=== PATIENT | male | born 2000 | race Caucasian/White ===

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

== ENCOUNTER → 2021-02-19 | Outpatient (CLI) | payer OTHER | END | disposition home or self-care (01) | LOC: ORTHO 02-18 05:31 | PROVIDERS: ATTEND Orthopaedic Surgery | DX: M25.561 Pain in right knee (principal); M25.562 Pain in left knee ==

== ENCOUNTER 2021-02-22 22:20 | Emergency (ER) | payer OTHER ==
[~2021-02-22] VITALS: Ht 175.2 cm; Wt 118.8 kg
== END 2021-02-23 01:40 | disposition home or self-care (01) ==
LOC: ED 22:20
DX: M25.512 Pain in left shoulder (principal); J45.909 Unspecified asthma, uncomplicated; Z88.8 Allergy status to other drugs, medicaments and biological substances; Z79.899 Other long term (current) drug therapy; Z79.2 Long term (current) use of antibiotics; X50.1XXA Overexertion from prolonged static or awkward postures, initial encounter; Y93.89 Activity, other specified; Y92.89 Other specified places as the place of occurrence of the external cause; Y99.8 Other external cause status

== ENCOUNTER 2021-08-23 14:49 | Emergency (ER) | payer OTHER ==
[~2021-08-23] VITALS: Ht 177.8 cm; Wt 95.3 kg
== END 2021-08-23 17:30 | disposition left against medical advice (07) ==
LOC: ED 14:49
DX: Z53.21 Procedure and treatment not carried out due to patient leaving prior to being seen by health care provider (principal)

== ENCOUNTER 2021-09-19 14:01 | Emergency (ER) | payer OTHER ==
[2021-09-19] MEDS ORDERED: ANTIBIOTIC28.4 GM T (14:38)
== END 2021-09-19 14:50 | disposition home or self-care (01) ==
LOC: ED 14:01
DX: T24.021A Burn of unspecified degree of right knee, initial encounter (principal); Z88.8 Allergy status to other drugs, medicaments and biological substances; Z79.899 Other long term (current) drug therapy; Z90.89 Acquired absence of other organs; X19.XXXA Contact with other heat and hot substances, initial encounter; Y93.89 Activity, other specified; Y92.89 Other specified places as the place of occurrence of the external cause; Y99.8 Other external cause status

== ENCOUNTER 2021-12-21 21:21 | Emergency (ER) | payer OTHER ==
[~2021-12-21] VITALS: Ht 172.7 cm; Wt 111.1 kg
[~2021-12-21 21:21] MED LIST changes: +ANTIBIOTIC28.4 GM T
== END 2021-12-21 22:04 | disposition home or self-care (01) ==
LOC: ED 21:21
DX: M79.604 Pain in right leg (principal); Z88.8 Allergy status to other drugs, medicaments and biological substances; Z79.899 Other long term (current) drug therapy; Z90.89 Acquired absence of other organs

== ENCOUNTER → 2021-12-22 | Outpatient (CLI) | payer OTHER | END | disposition home or self-care (01) | LOC: US 07:43 | PROVIDERS: ATTEND Physician Assistant | DX: M79.604 Pain in right leg (principal) ==

== ENCOUNTER 2022-01-29 09:38 | Emergency (ER) | payer OTHER ==
[~2022-01-29] VITALS: Ht 175.2 cm; Wt 111.6 kg
[2022-01-29 10:12] LABS: BASO % 0.4 % (0.0-1.0); EOS # 0.5 10*3/uL (0.0-0.4); EOS % 5.9 % (1.0-4.0); HEMATOCRIT 48.3 % (42.0-52.0); LYMPH # 2.5 10*3/uL (1.3-4.4); MEAN CELL VOLUME 86.3 fl (80.0-94.0); MEAN CORPUSCULAR HGB 28.9 pg (27.0-31.0); MEAN CORPUSCULAR HGB CONC 33.5 g/dl (33.0-37.0); MEAN PLATELET VOLUME 10.4 fl (9.6-12.3); MONO # 0.7 10*3/uL (0.1-1.0); NEUT # 4.6 10*3/uL (2.3-7.9); NEUT % 55.5 % (47.0-73.0); PLATELET COUNT AUTOMATED 253 10*3/uL (130-400); RED CELL DISTRI WIDTH 12.5 % (0-14.5); WHITE BLOOD COUNT 8.3 10*3/uL (4.8-10.8)
[2022-01-29 10:27] LABS: ALKALINE PHOSPHATASE 44 U/L (45-117); BUN 11 mg/dl (7-24); CHLORIDE 108 mmol/L (98-107); CREATININE 0.98 mg/dL (0.70-1.30); LIPASE 165 U/L (73-393); POTASSIUM 3.7 mmol/L (3.5-5.1); SGOT/AST 24 IU/L (3-35); SGPT/ALT 72 U/L (12-78); SODIUM 141 mmol/L (136-145); TOTAL PROTEIN 7.9 gm/dL (6.4-8.2)
[2022-01-29] MEDS ORDERED: AUGMENTIN 875-875 MG PO (12:49)
== END 2022-01-29 12:53 | disposition home or self-care (01) ==
LOC: ED 09:38
PROVIDERS: Family Medicine
DX: L03.316 Cellulitis of umbilicus (principal); Z88.8 Allergy status to other drugs, medicaments and biological substances; Z90.89 Acquired absence of other organs

== ENCOUNTER 2022-07-08 20:03 | Emergency (ER) | payer OTHER ==
[~2022-07-08] VITALS: Ht 175.2 cm; Wt 107.0 kg
[~2022-07-08 20:03] MED LIST changes: +AUGMENTIN 875-875 MG PO
== END 2022-07-09 00:23 | disposition home or self-care (01) ==
LOC: ED 20:03
DX: R51.9 Headache, unspecified (principal); K21.9 Gastro-esophageal reflux disease without esophagitis; J45.909 Unspecified asthma, uncomplicated; Z88.8 Allergy status to other drugs, medicaments and biological substances; Z90.89 Acquired absence of other organs

== ENCOUNTER 2022-11-24 01:54 | Emergency (ER) | payer OTHER ==
[~2022-11-24] VITALS: Ht 175.2 cm; Wt 113.4 kg
== END 2022-11-24 03:47 | disposition home or self-care (01) ==
LOC: ED 01:54
DX: B07.0 Plantar wart (principal); K21.9 Gastro-esophageal reflux disease without esophagitis; J45.909 Unspecified asthma, uncomplicated; Z88.8 Allergy status to other drugs, medicaments and biological substances; Z90.89 Acquired absence of other organs; Z98.890 Other specified postprocedural states; Z87.891 Personal history of nicotine dependence

== ENCOUNTER 2022-12-21 07:37 | Emergency (ER) | payer OTHER ==
[~2022-12-21] VITALS: Ht 175.2 cm; Wt 108.9 kg
[2022-12-21] MEDS ORDERED: METHOCARBAMOL500 M1 PO (08:21)
== END 2022-12-21 08:38 | disposition home or self-care (01) ==
LOC: ED 07:37
DX: M54.31 Sciatica, right side (principal); M79.604 Pain in right leg; K21.9 Gastro-esophageal reflux disease without esophagitis; J45.909 Unspecified asthma, uncomplicated; Z88.8 Allergy status to other drugs, medicaments and biological substances; Z90.89 Acquired absence of other organs; Z98.890 Other specified postprocedural states

== ENCOUNTER 2023-04-15 15:42 | Emergency (ER) | payer OTHER ==
[~2023-04-15] VITALS: Ht 175.2 cm; Wt 111.6 kg
[~2023-04-15 15:42] MED LIST changes: +METHOCARBAMOL500 M1 PO
[2023-04-15 16:42] LABS: BASO % 0.1 % (0.0-1.0); EOS # 0.2 10*3/uL (0.0-0.4); EOS % 2.5 % (1.0-4.0); HEMATOCRIT 47.7 % (42.0-52.0); LYMPH # 1.8 10*3/uL (1.3-4.4); LYMPH % 27.4 % (27.0-41.0); MEAN CELL VOLUME 88.2 fl (80.0-94.0); MEAN CORPUSCULAR HGB CONC 32.9 g/dl (33.0-37.0); MEAN PLATELET VOLUME 10.6 fl (9.6-12.3); MONO # 0.6 10*3/uL (0.1-1.0); MONO % 8.8 % (3.0-9.0); NEUT # 4.1 10*3/uL (2.3-7.9); NEUT % 60.9 % (47.0-73.0); PLATELET COUNT AUTOMATED 239 10*3/uL (130-400); RED BLOOD COUNT 5.41 10*6/uL (4.50-5.90); RED CELL DISTRI WIDTH 12.6 % (0-14.5); WHITE BLOOD COUNT 6.7 10*3/uL (4.8-10.8)
[2023-04-15] MEDS ORDERED: CEPHALEXIN500 M1 PO (17:01)
[2023-04-15 17:04] LABS: ALKALINE PHOSPHATASE 44 U/L (46-116); BUN 8 mg/dl (9-23); CHLORIDE 104 mmol/L (98-107); POTASSIUM 3.7 mmol/L (3.4-5.1); SGPT/ALT 54 U/L (10-49); TOTAL PROTEIN 7.4 gm/dL (6.0-8.0)
== END 2023-04-15 17:18 | disposition home or self-care (01) ==
LOC: ED 15:42
PROVIDERS: Nurse Practitioner Family
DX: L02.216 Cutaneous abscess of umbilicus (principal); Z88.8 Allergy status to other drugs, medicaments and biological substances; Z79.899 Other long term (current) drug therapy

== ENCOUNTER 2023-07-30 10:44 | Emergency (ER) | payer OTHER ==
[~2023-07-30] VITALS: Ht 172.7 cm; Wt 108.9 kg
== END 2023-07-30 15:44 | disposition home or self-care (01) ==
LOC: ED 10:44
DX: M25.551 Pain in right hip (principal); K21.9 Gastro-esophageal reflux disease without esophagitis; J45.909 Unspecified asthma, uncomplicated; Z88.8 Allergy status to other drugs, medicaments and biological substances; Z90.89 Acquired absence of other organs; Z98.890 Other specified postprocedural states

== ENCOUNTER 2023-11-07 14:15 | Emergency (ER) | payer OTHER ==
[~2023-11-07] VITALS: Ht 175.2 cm; Wt 113.4 kg
[2023-11-07] MEDS ORDERED: Dexamethasone Sodium Phospha 20 MG/5 ML VIAL IM ONE (15:55)
[2023-11-07] MEDS ORDERED: Ketorolac Tromethamine 15 MG/ML VIAL IM ONE (15:55)
[2023-11-07] MEDS ORDERED: MELOXICAM15 MG PO (17:04)
== END 2023-11-07 17:09 | disposition home or self-care (01) ==
LOC: ED 14:15
DX: M25.552 Pain in left hip (principal); K21.9 Gastro-esophageal reflux disease without esophagitis; J45.909 Unspecified asthma, uncomplicated; Z88.8 Allergy status to other drugs, medicaments and biological substances; Z90.89 Acquired absence of other organs; Z98.890 Other specified postprocedural states; Z87.891 Personal history of nicotine dependence

== ENCOUNTER → 2024-03-13 | Outpatient (CLI) | payer OTHER ==
[~2024-03-13] MED LIST changes: +MELOXICAM15 MG PO
== END | disposition home or self-care (01) ==
LOC: RAD 13:04
PROVIDERS: ATTEND Chiropractor
DX: M48.07 Spinal stenosis, lumbosacral region (principal); M47.897 Other spondylosis, lumbosacral region

== ENCOUNTER 2024-03-26 11:22 | Emergency (ER) | payer OTHER ==
[~2024-03-26] VITALS: Ht 175.2 cm; Wt 113.4 kg
[2024-03-26] MEDS ORDERED: Dicyclomine Hydrochloride 20 MG/10 ML OSYR PO STA (11:53)
[2024-03-26] MEDS ORDERED: MG-AL HYDROXIDE/SIMETICONE 30 ML UDC PO STA (11:53)
[2024-03-26] MEDS ORDERED: Lidocaine Hydrochloride 15 ML UDC PO STA (11:53)
[2024-03-26] MEDS ORDERED: Dexamethasone Sodium Phospha 20 MG/5 ML VIAL IM ONE (11:55)
[2024-03-26] MEDS ORDERED: Ketorolac Tromethamine 60 MG/2 ML VIAL IM ONE (11:55)
[2024-03-26] MEDS ORDERED: Cyclobenzaprine Hydrochlorid 10 MG TAB PO ONE (11:55)
[2024-03-26] MEDS ORDERED: LIDOCAINE 1 EA PATCH T ONE (11:55)
[2024-03-26] MEDS ORDERED: MEDROL DOSEPAK4 MG PO (14:12)
[2024-03-26] MEDS ORDERED: CYCLOBENZAPRINE5 M3 PO (14:12)
[2024-03-26] MEDS ORDERED: LIDOCAINE PAIN1 EACH T (14:12)
== END 2024-03-26 14:22 | disposition home or self-care (01) ==
LOC: ED 11:22
DX: M62.830 Muscle spasm of back (principal); M79.605 Pain in left leg; K21.9 Gastro-esophageal reflux disease without esophagitis; J45.909 Unspecified asthma, uncomplicated; Z88.8 Allergy status to other drugs, medicaments and biological substances; Z90.89 Acquired absence of other organs; Z98.890 Other specified postprocedural states; Z87.891 Personal history of nicotine dependence

== ENCOUNTER 2024-04-15 14:26 | Emergency (ER) | payer OTHER ==
[~2024-04-15] VITALS: Ht 175.2 cm; Wt 116.1 kg
[~2024-04-15 14:26] MED LIST changes: +CYCLOBENZAPRINE5 M3 PO; +LIDOCAINE PAIN1 EACH T
[2024-04-15] MEDS ORDERED: ALBUTEROL 8 GM INHALER INH ONE (15:05)
[2024-04-15] MEDS ORDERED: Albuterol Sulf/Ipratropium 3 ML VIAL NEB ONE (17:05)
[2024-04-15] MEDS ORDERED: PREDNISONE50 MG PO (18:14)
[2024-04-15] MEDS ORDERED: DEXAMETHASONE 4 MG TAB PO ONE (18:15)
[2024-04-16] MEDS ORDERED: ZITHROMAX250 MG PO (21:49)
[2024-04-16] MEDS ORDERED: Ondansetron4 MG PO (21:49)
== END 2024-04-15 18:21 | disposition home or self-care (01) ==
LOC: ED 14:26
DX: B34.9 Viral infection, unspecified (principal); Z20.822 Contact with and (suspected) exposure to COVID-19; K21.9 Gastro-esophageal reflux disease without esophagitis; J45.909 Unspecified asthma, uncomplicated; Z88.8 Allergy status to other drugs, medicaments and biological substances; Z90.89 Acquired absence of other organs; Z98.890 Other specified postprocedural states

== ENCOUNTER 2024-04-16 19:55 | Emergency (ER) | payer OTHER ==
[~2024-04-16] VITALS: Ht 177.8 cm; Wt 97.5 kg
[~2024-04-16 19:55] MED LIST changes: +PREDNISONE50 MG PO
[2024-04-16] MEDS ORDERED: SODIUM CHLORIDE 0.9% 1,000 ML IV ONE (20:35)
[2024-04-16] MEDS ORDERED: Ondansetron Hydrochloride 4 MG/2 ML VIAL IV ONE (20:35)
[2024-04-16] MEDS ORDERED: FAMOTIDINE 50 ML IV ONE (20:35)
[2024-04-16 20:57] LABS: BASO % 0.2 % (0.0-1.0); EOS % 0.3 % (1.0-4.0); HEMATOCRIT 44.3 % (42.0-52.0); LYMPH % 22.3 % (27.0-41.0); MEAN CELL VOLUME 88.6 fl (80.0-94.0); MEAN CORPUSCULAR HGB 29.2 pg (27.0-31.0); MEAN PLATELET VOLUME 10.4 fl (9.6-12.3); NEUT % 65.9 % (47.0-73.0); PLATELET COUNT AUTOMATED 316 10*3/uL (130-400); RED CELL DISTRI WIDTH 12.3 % (0-14.5); WHITE BLOOD COUNT 9.1 10*3/uL (4.8-10.8)
[2024-04-16 21:18] LABS: ALKALINE PHOSPHATASE 42 U/L (46-116); BUN 13 mg/dl (9-23); CHLORIDE 105 mmol/L (98-107); LIPASE 32 U/L (12-53); POTASSIUM 3.4 mmol/L (3.4-5.1); SGPT/ALT 66 U/L (5-49); TOTAL PROTEIN 7.6 gm/dL (6.0-8.0)
[2024-04-16 21:30] LABS: BILIRUBIN Negative (Negative); BLOOD Negative (Negative); CLARITY Clear (Clear); COLOR Dark Yellow (Yellow); GLUCOSE Negative (Negative); KETONE Trace (Negative); LEUKO ESTERASE Trace (Negative); NITRITE Negative (Negative); SPECIFIC GRAVITY >= 1.030 (1.001-1.030)
[2024-04-16 21:38] LABS: BACTERIA 1+; HYALINE CAST 0-2; MUCOUS 1+
[2024-04-16] MEDS ORDERED: Ondansetron4 MG PO (21:49)
[2024-04-16] MEDS ORDERED: ZITHROMAX250 MG PO (21:49)
== END 2024-04-16 22:04 | disposition home or self-care (01) ==
LOC: ED 19:55
PROVIDERS: Emergency Medicine
DX: R06.02 Shortness of breath (principal); Z20.822 Contact with and (suspected) exposure to COVID-19; R07.89 Other chest pain; K21.9 Gastro-esophageal reflux disease without esophagitis; J45.909 Unspecified asthma, uncomplicated; Z88.8 Allergy status to other drugs, medicaments and biological substances; Z90.89 Acquired absence of other organs; Z98.890 Other specified postprocedural states; Z79.899 Other long term (current) drug therapy

== ENCOUNTER → 2024-06-29 | Outpatient (CLI) | payer OTHER ==
[~2024-06-29] MED LIST changes: +Ondansetron4 MG PO
== END | disposition home or self-care (01) ==
LOC: MRI 06-21 09:00
PROVIDERS: ATTEND Nurse Practitioner Family
DX: M51.16 Intervertebral disc disorders with radiculopathy, lumbar region (principal); M47.26 Other spondylosis with radiculopathy, lumbar region; M51.379 Other intervertebral disc degeneration, lumbosacral region without mention of lumbar back pain or lower extremity pain; M48.07 Spinal stenosis, lumbosacral region; M43.16 Spondylolisthesis, lumbar region

== ENCOUNTER 2024-10-26 19:12 | Emergency (ER) | payer OTHER ==
[~2024-10-26] VITALS: Ht 172.7 cm; Wt 79.4 kg
[2024-10-26] MEDS ORDERED: Midazolam Hydrochloride 2 MG/2 ML VIAL IV ONE (19:40)
[2024-10-26] MEDS ORDERED: SODIUM CHLORIDE 0.9% 1,000 ML IV ONE (19:40)
[2024-10-26] MEDS ORDERED: Ondansetron Hydrochloride 4 MG/2 ML VIAL IV ONE ×2 (19:40→21:05)
[2024-10-26 19:55] LABS: BASO % 0.3 % (0.0-1.0); EOS # 0.3 10*3/uL (0.0-0.4); HEMATOCRIT 47.5 % (42.0-52.0); MEAN CELL VOLUME 85.1 fl (80.0-94.0); MEAN CORPUSCULAR HGB 28.9 pg (27.0-31.0); MEAN CORPUSCULAR HGB CONC 33.9 g/dl (33.0-37.0); MEAN PLATELET VOLUME 10.7 fl (9.6-12.3); MONO % 6.9 % (3.0-9.0); NEUT # 9.6 10*3/uL (2.3-7.9); NEUT % 66.8 % (47.0-73.0); PLATELET COUNT AUTOMATED 312 10*3/uL (130-400); RED BLOOD COUNT 5.58 10*6/uL (4.50-5.90); RED CELL DISTRI WIDTH 12.4 % (0-14.5); WHITE BLOOD COUNT 14.4 10*3/uL (4.8-10.8)
[2024-10-26 20:21] LABS: ALKALINE PHOSPHATASE 40 U/L (46-116); BUN 19 mg/dl (9-23); CHLORIDE 103 mmol/L (98-107); LIPASE 35 U/L (12-53); POTASSIUM 3.2 mmol/L (3.4-5.1); SGPT/ALT 54 U/L (5-49); TOTAL PROTEIN 7.9 gm/dL (6.0-8.0)
[2024-10-26] MEDS ORDERED: Ondansetron4 MG PO (21:32)
[2024-10-26] MEDS ORDERED: diphenhydrAMINE hydrochloride 50 MG/ML VIAL IV ONE (21:50)
[2024-10-26] MEDS ORDERED: Metoclopramide Hydrochloride 10 MG/2 ML VIAL IV ONE (21:50)
== END 2024-10-26 22:09 | disposition home or self-care (01) ==
LOC: ED 19:12
PROVIDERS: Internal Medicine
DX: T40.721A Poisoning by synthetic cannabinoids, accidental (unintentional), initial encounter (principal); R00.0 Tachycardia, unspecified; R11.10 Vomiting, unspecified; Z88.8 Allergy status to other drugs, medicaments and biological substances; Z79.899 Other long term (current) drug therapy; Y92.89 Other specified places as the place of occurrence of the external cause

== ENCOUNTER 2024-11-03 16:55 | Emergency (ER) | payer OTHER ==
[~2024-11-03] VITALS: Ht 172.7 cm
[2024-11-03] MEDS ORDERED: Albuterol Sulf/Ipratropium 3 ML VIAL NEB ONE (17:15)
[2024-11-03 17:35] LABS: BASO % 0.3 % (0.0-1.0); EOS # 0.5 10*3/uL (0.0-0.4); EOS % 4.6 % (1.0-4.0); HEMATOCRIT 47.2 % (42.0-52.0); MEAN CELL VOLUME 83.8 fl (80.0-94.0); MEAN CORPUSCULAR HGB 28.6 pg (27.0-31.0); MEAN CORPUSCULAR HGB CONC 34.1 g/dl (33.0-37.0); MEAN PLATELET VOLUME 10.6 fl (9.6-12.3); MONO # 1.1 10*3/uL (0.1-1.0); MONO % 11.2 % (3.0-9.0); NEUT % 60.8 % (47.0-73.0); PLATELET COUNT AUTOMATED 262 10*3/uL (130-400); RED BLOOD COUNT 5.63 10*6/uL (4.50-5.90); WHITE BLOOD COUNT 9.9 10*3/uL (4.8-10.8)
[2024-11-03 17:58] LABS: BUN 16 mg/dl (9-23); CHLORIDE 103 mmol/L (98-107); POTASSIUM 3.9 mmol/L (3.4-5.1)
[2024-11-03] MEDS ORDERED: ZITHROMAX250 MG PO (18:03)
[2024-11-03] MEDS ORDERED: PREDNISONE50 MG PO (18:03)
[2024-11-03] MEDS ORDERED: AZITHROMYCIN 250 MG TAB PO ONE (18:05)
[2024-11-03] MEDS ORDERED: ALBUTEROL 8 GM INHALER INH ONE (18:05)
[2024-11-03] MEDS ORDERED: methylPREDNISolone sod succ 125 MG VIAL IM ONE (18:05)
== END 2024-11-03 18:16 | disposition home or self-care (01) ==
LOC: ED 16:55
PROVIDERS: Nurse Practitioner Family
DX: J45.909 Unspecified asthma, uncomplicated (principal); K21.9 Gastro-esophageal reflux disease without esophagitis; Z20.822 Contact with and (suspected) exposure to COVID-19; Z88.8 Allergy status to other drugs, medicaments and biological substances; Z90.89 Acquired absence of other organs; Z98.890 Other specified postprocedural states

== ENCOUNTER 2024-12-20 01:22 | Emergency (ER) | payer OTHER ==
[~2024-12-20] VITALS: Ht 175.2 cm; Wt 109.0 kg
[2024-12-20] MEDS ORDERED: Ondansetron Hydrochloride 4 MG TAB SL ONE (01:45)
[2024-12-20] MEDS ORDERED: Acetaminophen/Hydrocodone 5 MG/325 MG TABLET PO ONE (01:45)
[2024-12-20] MEDS ORDERED: Sulfamethoxazole/Trimethopri 1 TAB TAB PO ONE (01:45)
[2024-12-20] MEDS ORDERED: SEPTDS PO (01:47)
== END 2024-12-20 02:03 | disposition home or self-care (01) ==
LOC: ED 01:22
DX: L02.01 Cutaneous abscess of face (principal); L53.9 Erythematous condition, unspecified; Z88.8 Allergy status to other drugs, medicaments and biological substances; Z79.899 Other long term (current) drug therapy

== ENCOUNTER 2025-04-28 03:24 | Emergency (ER) | payer OTHER ==
[~2025-04-28] VITALS: Ht 172.7 cm; Wt 97.5 kg
[~2025-04-28 03:24] MED LIST changes: +SEPTDS PO
[2025-04-28] MEDS ORDERED: AMOX-CLAV 875-1 EACH PO (04:11)
[2025-04-28] MEDS ORDERED: BENZOCAINE 20% 11.9 GM GEL T STA (04:12)
[2025-04-28] MEDS ORDERED: Amoxicillin/Clavulanate Pota 875 MG TAB PO ONE (04:15)
== END 2025-04-28 04:26 | disposition home or self-care (01) ==
LOC: ED 03:24
DX: K04.7 Periapical abscess without sinus (principal); Z88.8 Allergy status to other drugs, medicaments and biological substances; Z79.899 Other long term (current) drug therapy

== ENCOUNTER 2025-04-30 20:23 | Emergency (ER) | payer OTHER ==
[~2025-04-30] VITALS: Ht 175.2 cm; Wt 108.9 kg
[~2025-04-30 20:23] MED LIST changes: +AMOX-CLAV 875-1 EACH PO
[2025-04-30] MEDS ORDERED: Ondansetron Hydrochloride 4 MG TAB SL ONE ×2 (21:10→22:15)
[2025-04-30] MEDS ORDERED: Ondansetron4 MG PO (22:12)
== END 2025-04-30 22:34 | disposition home or self-care (01) ==
LOC: ED 20:23
DX: B34.9 Viral infection, unspecified (principal); R11.2 Nausea with vomiting, unspecified; Z88.8 Allergy status to other drugs, medicaments and biological substances

== ENCOUNTER 2025-05-04 17:40 | Emergency (ER) | payer OTHER ==
[~2025-05-04] VITALS: Ht 175.2 cm; Wt 108.9 kg
[2025-05-04] MEDS ORDERED: ERYTHROMYCIN OPH1 GM OPH (18:30)
[2025-05-04] MEDS ORDERED: ERYTHROMYCIN 1 GM TUBE OPH ONE (18:35)
== END 2025-05-04 18:49 | disposition home or self-care (01) ==
LOC: ED 17:40
DX: H10.9 Unspecified conjunctivitis (principal); J45.909 Unspecified asthma, uncomplicated; Z88.8 Allergy status to other drugs, medicaments and biological substances

== ENCOUNTER 2025-06-03 03:23 | Emergency (ER) | payer OTHER ==
[~2025-06-03] VITALS: Ht 175.2 cm; Wt 104.3 kg
[~2025-06-03 03:23] MED LIST changes: +ERYTHROMYCIN OPH1 GM OPH
[2025-06-03] MEDS ORDERED: Amoxicillin/Clavulanate Pota 875 MG TAB PO ONE (03:40)
[2025-06-03] MEDS ORDERED: AMOX-CLAV 875-1 EACH PO (03:42)
== END 2025-06-03 03:45 | disposition home or self-care (01) ==
LOC: ED 03:23
DX: K04.7 Periapical abscess without sinus (principal); K02.9 Dental caries, unspecified; K21.9 Gastro-esophageal reflux disease without esophagitis; J45.909 Unspecified asthma, uncomplicated; Z88.8 Allergy status to other drugs, medicaments and biological substances

== ENCOUNTER 2025-07-05 16:52 | Emergency (ER) | payer OTHER ==
[~2025-07-05] VITALS: Ht 175.2 cm; Wt 111.1 kg
[2025-07-05] MEDS ORDERED: SODIUM CHLORIDE 0.9% 1,000 ML IV ONE (17:40)
[2025-07-05] MEDS ORDERED: Metoclopramide Hydrochloride 10 MG/2 ML VIAL IV ONE (17:40)
[2025-07-05] MEDS ORDERED: diphenhydrAMINE hydrochloride 50 MG/ML VIAL IV ONE (17:40)
[2025-07-05 17:52] LABS: BASO # 0.0 10*3/uL (0.0-0.1); BASO % 0.5 % (0.0-1.0); EOS # 0.4 10*3/uL (0.0-0.4); EOS % 7.3 % (1.0-4.0); MEAN CELL VOLUME 87.6 fl (80.0-94.0); MEAN CORPUSCULAR HGB 29.0 pg (27.0-31.0); MEAN PLATELET VOLUME 10.3 fl (9.6-12.3); MONO # 0.6 10*3/uL (0.1-1.0); MONO % 9.7 % (3.0-9.0); NEUT # 2.9 10*3/uL (2.3-7.9); NEUT % 48.3 % (47.0-73.0); NUCLEATED RED BLOOD CELL 0.0 % (0.0-0.0); NUCLEATED RED BLOOD CELL 0.0 10*3/uL (0.0-0.0); PLATELET COUNT AUTOMATED 271 10*3/uL (130-400); RED CELL DISTRI WIDTH 12.6 % (0-14.5)
[2025-07-05 18:11] LABS: BUN 16 mg/dl (9-23)
[2025-07-05] MEDS ORDERED: Ondansetron4 MG PO (18:49)
== END 2025-07-05 18:51 | disposition home or self-care (01) ==
LOC: ED 16:52
PROVIDERS: Nurse Practitioner Family
DX: B34.9 Viral infection, unspecified (principal); K08.89 Other specified disorders of teeth and supporting structures; R11.2 Nausea with vomiting, unspecified; R20.2 Paresthesia of skin; K21.9 Gastro-esophageal reflux disease without esophagitis; J45.909 Unspecified asthma, uncomplicated; Z88.8 Allergy status to other drugs, medicaments and biological substances; Z20.822 Contact with and (suspected) exposure to COVID-19

== ENCOUNTER 2025-08-16 13:16 | Emergency (ER) | payer OTHER ==
[~2025-08-16] VITALS: Ht 175.2 cm
[2025-08-16] MEDS ORDERED: Ondansetron Hydrochloride 4 MG/2 ML VIAL IV ONE (13:55)
[2025-08-16] MEDS ORDERED: SODIUM CHLORIDE 0.9% 1,000 ML IV ONE (13:55)
[2025-08-16 14:08] LABS: BASO # 0.0 10*3/uL (0.0-0.1); BASO % 0.3 % (0.0-1.0); EOS # 0.4 10*3/uL (0.0-0.4); EOS % 3.5 % (1.0-4.0); MEAN CELL VOLUME 88.5 fl (80.0-94.0); MEAN CORPUSCULAR HGB 29.3 pg (27.0-31.0); MEAN PLATELET VOLUME 11.0 fl (9.6-12.3); MONO # 0.6 10*3/uL (0.1-1.0); MONO % 6.0 % (3.0-9.0); NEUT # 8.5 10*3/uL (2.3-7.9); NEUT % 82.8 % (47.0-73.0); NUCLEATED RED BLOOD CELL 0.0 % (0.0-0.0); NUCLEATED RED BLOOD CELL 0.0 10*3/uL (0.0-0.0); PLATELET COUNT AUTOMATED 180 10*3/uL (130-400); RED CELL DISTRI WIDTH 12.5 % (0-14.5)
[2025-08-16 14:28] LABS: BUN 14 mg/dl (9-23)
[2025-08-16] MEDS ORDERED: Ondansetron Hydrochloride 4 MG TAB PO ONE (15:05)
[2025-08-16] MEDS ORDERED: Ondansetron4 MG PO (15:05)
== END 2025-08-16 15:18 | disposition home or self-care (01) ==
LOC: ED 13:16
PROVIDERS: Nurse Practitioner Family
DX: K52.9 Noninfective gastroenteritis and colitis, unspecified (principal); K21.9 Gastro-esophageal reflux disease without esophagitis; J45.909 Unspecified asthma, uncomplicated; Z90.89 Acquired absence of other organs; Z88.8 Allergy status to other drugs, medicaments and biological substances

== ENCOUNTER 2025-08-18 01:47 | Emergency (ER) | payer OTHER ==
[~2025-08-18] VITALS: Ht 175.2 cm; Wt 115.2 kg
[2025-08-18] MEDS ORDERED: Ondansetron Hydrochloride 4 MG TAB PO ONE (02:15)
[2025-08-18] MEDS ORDERED: IBUPROFEN 800 MG TAB PO ONE (02:15)
[2025-08-18 02:26] LABS: BASO # 0.0 10*3/uL (0.0-0.1); BASO % 0.3 % (0.0-1.0); EOS # 0.1 10*3/uL (0.0-0.4); EOS % 3.3 % (1.0-4.0); MEAN CELL VOLUME 87.6 fl (80.0-94.0); MEAN CORPUSCULAR HGB 29.2 pg (27.0-31.0); MEAN PLATELET VOLUME 10.3 fl (9.6-12.3); MONO # 0.5 10*3/uL (0.1-1.0); MONO % 13.5 % (3.0-9.0); NEUT # 2.4 10*3/uL (2.3-7.9); NEUT % 59.5 % (47.0-73.0); NUCLEATED RED BLOOD CELL 0.0 % (0.0-0.0); NUCLEATED RED BLOOD CELL 0.0 10*3/uL (0.0-0.0); PLATELET COUNT AUTOMATED 222 10*3/uL (130-400); RED CELL DISTRI WIDTH 12.4 % (0-14.5)
[2025-08-18 02:47] LABS: BUN 14 mg/dl (9-23); SGPT/ALT 52 U/L (5-49)
== END 2025-08-18 05:33 | disposition home or self-care (01) ==
LOC: ED 01:47
PROVIDERS: Student in an Organized Health Care Education/Training Program
DX: R11.0 Nausea (principal); M54.2 Cervicalgia; R51.9 Headache, unspecified; K21.9 Gastro-esophageal reflux disease without esophagitis; J45.909 Unspecified asthma, uncomplicated; Z88.8 Allergy status to other drugs, medicaments and biological substances; Z20.822 Contact with and (suspected) exposure to COVID-19